=== PATIENT | male | born 1925 | race Caucasian/White ===

== ENCOUNTER → 2017-05-09 | Outpatient (CLI) | payer MEDICARE, BC ==
[~2017-05-09] MED LIST: AMIO200T PO; AMLO10TA2 PO; ASPI81TA21 PO; CARV12.5 PO; CRES10TA32 PO; DOXA1TAB40 PO; METF500T13 PO; VIMP50TA3 PO; XARE10TA PO
[2017-05-09 11:52] LABS: BASO % 0.5 % (0.0-1.0); EOS # 0.1 K/mm3 (0.0-0.50); LYMPH # 2.3 K/mm3 (1.5-4.5); LYMPH % 35.5 % (24.0-44.0); MEAN CORPUSCULAR HEMOGLOBIN 29.5 pg (27.0-33.0); MEAN CORPUSCULAR HGB CONC 32.6 g/dl (32.0-36.5); MEAN CORPUSCULAR VOLUME 90.6 fl (80.0-96.0); MONO # 0.4 K/mm3 (0.0-0.8); MONO % 6.2 % (0.0-5.0); NEUTROPHILS # 3.5 K/mm3 (1.8-7.7); NEUTROPHILS % 53.9 % (36.0-66.0); RED CELL DISTRIBUTION WIDTH 14.1 % (11.5-14.5); WHITE BLOOD COUNT 5.7 K/mm3 (4.0-10.0)
[2017-05-09 15:27] LABS: ALBUMIN 3.8 GM/DL (3.2-5.2); ALBUMIN/GLOBULIN RATIO 1.12 (1.00-1.93); ALKALINE PHOSPHATASE 44 U/L (45-117); ALT/SGPT 26 U/L (12-78); ANION GAP 10 MEQ/L (8-16); AST/SGOT 14 U/L (15-37); BILIRUBIN,TOTAL 0.3 MG/DL (0.2-1.0); BLOOD UREA NITROGEN 24 MG/DL (7-18); CALCIUM LEVEL 9.1 MG/DL (8.8-10.2); CARBON DIOXIDE LEVEL 25 MEQ/L (21-32); CHLORIDE LEVEL 107 MEQ/L (98-107); CREATININE FOR GFR 1.18 MG/DL (0.70-1.30); GLOMERULAR FILTRATION RATE > 60.0 (>35); GLUCOSE, FASTING 112 MG/DL (83-110); POTASSIUM SERUM 4.4 MEQ/L (3.5-5.1); SODIUM LEVEL 142 MEQ/L (136-145); TOTAL PROTEIN 7.2 GM/DL (6.4-8.2)
== END ==
LOC: M LAB 11:00
PROVIDERS: ATTEND Internal Medicine Cardiovascular Disease
DX: I48.4 Atypical atrial flutter (principal); I35.1 Nonrheumatic aortic (valve) insufficiency; I11.9 Hypertensive heart disease without heart failure

== ENCOUNTER 2017-05-15 13:00 | Day surgery (SDC) | payer MEDICARE, BC ==
[2017-05-15 13:26] VITALS: BP 138/74
[2017-05-15 13:43] VITALS: BP 138/74
[2017-05-15] MEDS ORDERED: LR 1,000 ML IV SCH ×2 (14:00→21:30)
[2017-05-15 16:00] VITALS: BP 152/66
[2017-05-15] MEDS ORDERED: MIDAZOLAM INJ 2 MG/2 ML VIAL (J2250) As Ordered ONE (18:41)
[2017-05-15] MEDS ORDERED: fentaNYL 100 MCG/2 ML INJECTION (J3010) As Ordered ONE (18:41)
[2017-05-15] MEDS ORDERED: ONDANSETRON 4MG/2ML VIAL (J2405) As Ordered ONE (18:41)
[2017-05-15] MEDS ORDERED: PROPOFOL 200 MG/20 ML VIAL As Ordered ONE (18:41)
[2017-05-15] MEDS ORDERED: LIDOCAINE 2% INJ 100 MG/5 ML SDV (FOR ANES.) As Ordered ONE (18:41)
[2017-05-15] MEDS ORDERED: LIDOCAINE 1% SDV INJ 30 ML VIAL As Ordered ONE (18:44)
[2017-05-15] MEDS ORDERED: CRES10TA32 PO (18:48)
[2017-05-15] MEDS ORDERED: CARV12.5 PO (18:48)
[2017-05-15] MEDS ORDERED: ASPI81TA21 PO (18:48)
[2017-05-15] MEDS ORDERED: METF500T13 PO (18:48)
[2017-05-15] MEDS ORDERED: VIMP50TA3 PO (18:48)
[2017-05-15] MEDS ORDERED: AMLO10TA2 PO (18:48)
[2017-05-15] MEDS ORDERED: XARE10TA PO (18:48)
[2017-05-15] MEDS ORDERED: DOXA1TAB40 PO (18:48)
[2017-05-15] MEDS ORDERED: ceFAZolin 1GM INJ (J0690) As Ordered ONE (19:36)
[2017-05-15] MEDS ORDERED: AMIODARONE HCL 150 MG/100 ML PREMIXED BAG (NEXTERONE) As Ordered ONE ×2 (20:28→20:42)
[2017-05-15] MEDS ORDERED: DOXAZOSIN MESYLATE 4 MG TAB PO SCH (21:00)
[2017-05-15] MEDS ORDERED: ONDANSETRON 4MG/2ML VIAL (J2405) IV PRN (21:30)
[2017-05-15 22:00] VITALS: BP 174/83
[2017-05-15] MEDS ORDERED: ACETAMINOPHEN TAB 650MG DOSE (2X325MG) PO PRN (22:00)
[2017-05-15 22:30] VITALS: BP 150/72
[2017-05-15] MEDS: CARVedilol 12.5 MG TAB PO SCH (22:36)
[2017-05-15] MEDS: LISINOPRIL 10 MG TAB PO SCH (22:37)
[2017-05-15] MEDS: AMIODARONE 200 MG TAB (PACERONE) PO SCH (22:37)
[2017-05-15 23:30] VITALS: BP 155/91
[2017-05-16 00:35] VITALS: BP 138/83
[2017-05-16 04:00] VITALS: BP 148/71
[2017-05-16] MEDS: ceFAZolin SOD 1 GM in D5W MINI-BAG PLUS 50 ML IV SCH ×2 (04:01→11:09)
--- NOTE | 2017-05-16 05:32 | RO ---
DATE OF PROCEDURE: 05/15/2017 PREOPERATIVE DIAGNOSIS: High-grade atrioventricular (AV) block with recurrent near syncope/atrial flutter. POSTOPERATIVE DIAGNOSIS: High-grade atrioventricular (AV) block with recurrent near syncope/atrial flutter. PROCEDURE: 1. Implantation of permanent dual-chamber pacemaker. 2. Attempted atrial overdrive pacing of atrial flutter. 3. Direct current cardioversion of atrial fibrillation. IMPLANTING SECURITIES SETTLEMENT PROCESSOR: Dr. Dickson Schneider DRUM LOADER AND UNLOADER: ANESTHESIOLOGIST: Dr. Pozo TYPE OF ANESTHESIA: Monitored local anesthesia. CLINICAL SUMMARY: This 89-year-old father of six grown children (one ), resident of [place] who daniels at [place], is well known to my cardiology practice having ischemic, hypertensive and valvular heart disease. 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 He had been suffering recurrent falls and had a subdural hematoma October 2014 and March 2015, status post craniotomy with post craniotomy seizures. Was seen in followup 04/27/2017 complaining of some absent spells but was making fair progress with his walker, had been able to climb up to four flights of stairs during the course of the day without chest pain. Ultimate limitation with dyspnea. Had been free of any palpitations. Despite his episodes of absence without lateralizing neurological symptom had been tolerating his medications. Office EKG showed new onset atrial flutter with somewhat slow ventricular response on carvedilol 12.5 mg twice a day. A 5-day patch Holter monitor was performed showing heart rate range 34-102 averaging 77 beats per minute (BPM) on his current carvedilol therapy. Unfortunately, he had occasional rates as low as 30s during wakeful hours and 509 asystolic pauses of at least 2 seconds, 37 greater than 3 seconds with the longest pause of 4.7 seconds. He had occasional isolated premature ventricular contractions (PVCs). In light of his significant bradyarrhythmia and controlled average ventricular response with atrial flutter on his carvedilol, we recommended permanent pacemaker implantation. At the same time, we would be tempted to try and convert his rhythm to a sinus mechanism. Pleasant, mildly overweight, tall, elderly gentleman laying comfortably. Heart rate 78 beats per minute and irregular, blood pressure 150/58 sitting, respiratory rate 16 per minute, body mass index (BMI) 27.5. No pallor or cyanosis. Significant proximal muscle weakness and some unsteadiness of gait using a walker. Trachea midline. Jugular veins 2 cm above the sternal angle. Normal-appearing chest configuration with well-healed sternotomy incisions. A few bibasilar inspiratory crepitations that clear with a deep breath. Slight prolongation of expiration but no audible wheeze. Apical impulse not palpable. S1 and S2 were variable. Has a crisp S2 closure that is prosthetic. Systolic ejection murmur that was variable in intensity because of his arrhythmia. Normal carotid upstrokes with variable volume related to his arrhythmia. No bruits. Pedal pulses were difficult to palpate through pitting edema 1 mm one-third up both lower legs. His abdomen is soft. panel monitor 04/27/2017 shows underlying atrial tachycardia versus slow atrial flutter with somewhat slow ventricular response averaging 53 BPM. Leftward axis with left bundle branch block configuration. Rhythm changed from our last tracing June 2016. Blood work was performed showing a normal CBC, sedimentation rate of 16. Two blood cultures were obtained. One showing a contaminant. Repeat blood cultures were obtained earlier today. Electrolytes were in balance with normal BUN and creatinine. Her glucose was slightly elevated. DESCRIPTION OF PROCEDURE: In the fasting state having signed informed consent and having received Ancef 2 grams IV premedication, the patient was taken to the operating theater. Numerous skin electrodes were applied to facilitate continuous electrocardiographic monitoring. Self-adhesive cardioverting/defibrillator pads were applied in an anteroposterior configuration and connected to a bedside cardioverter defibrillator. The left subclavian region was prepped and draped in usual fashion and the skin was infiltrated with 1% Xylocaine. The left axillary vein was catheterized using the micropuncture technique. A 5 cm linear incision was made several centimeters below and parallel to the left clavicle. Dissection was carried down to the level of the pectoralis fascia. The pocket was fashioned below the level of the incision line. Two bipolar screw-in active fixation steroid eluding pacing leads were then positioned to the high right atrial appendage and high right ventricular outflow track under fluoroscopic and electrocardiographic control. These sites were the final positions after the three separate locations in the right ventricle and at least six separate sites in the right atrium. The ventricular lead ([employer], model #[id number]/58, serial number [id number]) measurements were: Stimulation threshold 0.6 V/0.4 ms/impedance 623 ohms. The capital R wave amplitude measured 5.7 mV. At this point, with the ventricular lead in position, the patient was given amiodarone 150 mg IV infusion over 10 minutes for two doses by 20 minutes. We proceeded with attempted rapid atrial overdrive pacing once his pacing lead was positioned to the high right atrial appendage. A host of 20-second rapid atrial bursts were administered with atrial pacing output of 7.5 volts and 1.5 milliseconds. We initially found a cycle length of 340 milliseconds so we paced him with 300 milliseconds and 280 milliseconds and 260 milliseconds, 240 milliseconds without converting his underlying rhythm to a sinus mechanism. Finally the patient flipped atrial fibrillation. At this point, the patient was given additional sedation by anesthesia and once his awareness was blunted a single synchronized direct current shock of 200 joules was administered with successful conversion to a sinus rhythm. As described above, the second dose of amiodarone was administered because of frequent PACs. His atrial lead ([employer], model #[id number], serial number [id number]) measurements were: Stimulation threshold 0.8 P/0.4 ms/impedance 466 ohms. The P wave amplitude measured 1.2 mV. These leads were secured into position with sleeves sutured at their insertion site. They were then connected to a dual-chamber pulse generator ([employer] - [employer] - model #[id number], serial #[id number] - MRI compatible. Appropriate DDD pacing was documented. We have already activated the AF suppression mode to help us prevent recurrent atrial flutter. The patient will also be started on amiodarone 200 mg four times a day for the next 2 weeks. The pulse generator was placed and the pocket was secured in position with a suture through the upper right-hand corner of the epoxy header. The subcutaneous tissues were approximated using a running chromic suture and the skin was closed using livan. A dry dressing was applied. The patient was returned to the recovery room in good condition. Estimated blood loss approximately 10 mL. No apparent complications. Postoperative portable upright chest x-ray confirmed good lead position with no pneumothorax. His EKG in the recovery room showed consistent AV sequentially paced rhythm with rightward axis in keeping with right ventricle outflow tract stimulation. Our plan is to monitor him overnight on telemetry. He will receive an additional three doses of Ancef 1 gram IV every 8 hours. His medications will continue as before including carvedilol 12.5 mg twice a day, lisinopril 10 mg twice a day, amlodipine 10 mg daily, Crestor 10 mg nightly, doxazosin 4 mg nightly, aspirin 81 mg daily, metformin 500 mg twice a day and his Xarelto 10 mg daily will be started tomorrow afternoon. Amiodarone 2 mg four times a day will be administered for the next 2 weeks, dropping this to 2 mg three times a day for the next month in hopes of preserving a coordinated atrial mechanism. Following that we will reduce the dose to 200 mg daily. We anticipate he will be able to go home tomorrow, and he has an appointment in my office for staple removal and wound check in 7-10 days. FINAL DIAGNOSES: 1. High-grade atrioventricular block with recurrent near syncope - now with the dual-chamber pacemaker in situ. 2. Slow atrial flutter - now converted to an atrially paced rhythm. 3. Abnormal electrocardiogram/left bundle branch block. 4. Coronary disease ([place] vessel) post coronary artery bypass graft (CABG) times 2. 5. Hypertensive heart disease (benign without heart failure). 6. Aortic valve disorder (nonrheumatic) status post valve replacement. He will be resuming his customary no added salt, low fat, low cholesterol, diabetic diet. Activities will be as tolerated with light activities of his left arm until his livan are removed from my office. He has been encouraged to avoid getting his incision wet and to report any abnormal erythema, swelling or discharge. AMYLIN
[2017-05-16] MEDS ORDERED: metFORMIN (GLUCOPHAGE) 500 MG TAB PO SCH (08:00)
--- NOTE | 2017-05-16 08:18 | REP ---
Clinical: Pacemaker placement . Comparison: 08/06/2007 . Findings: The mediastinum and cardiac silhouette are stable and within normal limits for portable technique. Pacemaker identified. The lung mcdowell are clear without acute consolidation, effusion, or pneumothorax. Skeletal structures are intact. Impression: No acute cardiopulmonary process appreciated. Signed by Daniel Lorenzana MD 05/16/2017 08:10 A
[2017-05-16 08:32] VITALS: BP 149/80
[2017-05-16] MEDS ORDERED: ASPIRIN 81 MG CHEW TABLET PO SCH (09:00)
[2017-05-16] MEDS ORDERED: amLODIPine 10 MG TAB PO SCH (09:00)
[2017-05-16] MEDS: CARVedilol 12.5 MG TAB PO SCH (09:21)
[2017-05-16 09:22] VITALS: BP 149/80
[2017-05-16] MEDS: AMIODARONE 200 MG TAB (PACERONE) PO SCH (09:22)
[2017-05-16] MEDS: LISINOPRIL 10 MG TAB PO SCH (09:22)
--- NOTE | 2017-05-16 09:30 | REP ---
Clinical: Status post pacemaker . Comparison: 05/15/2017 . Technique: PA and lateral. Findings: The mediastinum and cardiac silhouette are normal. Pacemaker in stable position. The lung mcdowell are clear and without acute consolidation, effusion, or pneumothorax. The skeletal structures are intact and normal. Impression: 1. No acute cardiopulmonary process. Signed by Daniel Lorenzana MD 05/16/2017 09:22 A
--- NOTE | 2017-05-16 10:09 | ECGEPIP ---
Stationary ECG Study [facility] Test Date: 2017-05-15 Pat Name: CONSUELO SAUCEDO Department: Room: [place] [address] Gender: M Blaster Helper: : 1925 Requested By: Dickson Schneider Order Number: [id number] Reading MD: Pat Garg Measurements Intervals [place] Rate: 69 P: -65 WI: 208 QRS: 111 QRSD: 178 T: -68 QT: 500 QTc: 537 Interpretive Statements ELECTRONIC ATRIAL PACEMAKER ELECTRONIC VENTRICULAR PACEMAKER ABNORMAL RHYTHM ECG POSSIBLE INAPPROPRIATE SENSING BEATS 5 AND 8 NO PRIOR Electronically Signed On 05-16-2017 10:09:32 EDT by Pat Garg
--- NOTE | 2017-05-16 10:11 | ECGEPIP ---
Stationary ECG Study [facility] Test Date: 2017-05-16 Pat Name: CONSUELO SAUCEDO Department: Room: [place] [address] Gender: M Administrative Support Specialist: DANGELO : 1925 Requested By: Dickson Schneider Order Number: [id number] Reading MD: Pat Garg Measurements Intervals [place] Rate: 106 P: -62 SD: 170 QRS: 112 QRSD: 193 T: -61 QT: 428 QTc: 571 Interpretive Statements ELECTRONIC ATRIAL PACEMAKER ELECTRONIC VENTRICULAR PACEMAKER ABNORMAL RHYTHM ECG RATE FASTER APPROPRIATE SENSING C/W 05/15/173 Electronically Signed On 05-16-2017 10:10:45 EDT by Pat Garg
[2017-05-16] MEDS ORDERED: AMIO200T PO (12:20)
--- NOTE | 2017-05-16 13:35 | IPN ---
CARDIOLOGY PROGRESS NOTE DATE: 05/16/2017 SUBJECTIVE: Patient does note some incisional discomfort but has been free of other chest discomfort, shortness of breath, palpitations, or dizziness. Has been up in his room without problem. OBJECTIVE: Pleasant, somewhat tall, elderly male lying comfortably in bed. Heart rate 104 beats per minute and regular, blood pressure 149/80, respiratory rate 18, O2 saturation 97% on room air. Afebrile. No pallor or cyanosis. His pacer incision dressing was removed, and his incision inspected. There was no erythema. Minimal blood on the bandage but no abnormal swelling or discharge. AERIAL PHOTOGRAPH INTERPRETER: This shows mostly atrial and ventricular paced rhythm. Occasional sensed atrial activity that triggers his AF suppression mode with more rapid pacing temporarily. CHEST X-RAY: Study performed today was reviewed independently and shows cardiomegaly with sternotomy wire sutures. Evidence of his prior prosthetic aortic valve replacement with three small rings and stable pacing lead position anterior high right atrium and the septal portion of the right ventricular outflow tract. Pulse generator, left subclavian region. Slightly unfolded thoracic aorta with some calcification. Normal pulmonary vasculature and clear lung mcdowell with no pleural effusion. EKG: Study today shows again consistent atrial and ventricular pacing at 106 beats per minute (atrial fibrillation suppression mode) with occasional sensed atrial ectopic activity. Rightward axis with left bundle branch block pattern consistent with right ventricular outflow tract stimulation. No change from yesterday. IMPRESSION/PLAN: 1. Atrial flutter: This was converted yesterday in the operating room following his pacemaker implant. Currently continues on amiodarone antiarrhythmic therapy with his pacemaker programmed to AF suppression mode in hopes of preventing recurrent atrial tachyarrhythmia. 2. AV block/dual-chamber pacemaker in situ: His pacemaker is functioning appropriately. Has excellent intracardiac electrograms and pacing thresholds with ample battery voltage. His device is functioning appropriately with atrial fibrillation suppression mode activated, as mentioned above. Pacemaker reprogramming was performed today in order to save battery life and prolong generator longevity. No apparent complications with chest x-ray and EKG showing stable function and position. 3. Coronary artery disease ([place] vessel)/post bypass surgery: Has remained free of symptomatic myocardial ischemia. Serial EKGs here have shown no repolarization changes. Will remain on protective combination medical therapy. 4. Hypertensive heart disease (benign without heart failure): Given his current mild incisional discomfort, his blood pressure has remained controlled. No symptoms or signs of congestion. 5. Aortic valve disorder (nonrheumatic)/postaortic valve replacement (currently a bioprosthetic device): No symptoms or signs of endocarditis. DISCHARGE MEDICATIONS AND RECOMMENDATIONS: Patient will be going home today and has been requested to perform only light activities of daily living with his left arm and avoid getting his incision wet until his livan are removed in my office in 7-10 days. A prescription for amiodarone has been sent to his pharmacy with the following Instructions: 200 mg tablets one tablet four times a day until May 29 then one tablet three times a day until June 12, then one tablet twice a day until July 13 then one tablet daily. Other medications will continue; carvedilol 12.5 mg twice a day, lisinopril 10 mg twice a day, amlodipine 10 mg daily, aspirin 81 mg daily, Xarelto 10 mg daily to resume tomorrow morning, Crestor 10 mg nightly, doxazosin 4 mg nightly, Vimpat 50 mg by mouth twice a day, and metformin 500 mg twice a day. He has been encouraged to contact our office promptly for any abnormal swelling, erythema, or discharge.
[2017-05-16] MEDS ORDERED: RIVAROXABAN 10 MG TAB (XARELTO) PO SCH (18:00)
== END 2017-05-16 13:26 | disposition home or self-care (01) ==
LOC: M OROP 13:00 → M OPCLIPCU 13:00 → M PCU 13:09 → M OPCLIPCU 05-16 13:26
PROVIDERS: ATTEND Internal Medicine Cardiovascular Disease
DX: I44.2 Atrioventricular block, complete (principal); I48.4 Atypical atrial flutter; R94.31 Abnormal electrocardiogram [ECG] [EKG]; I25.10 Atherosclerotic heart disease of native coronary artery without angina pectoris; I35.1 Nonrheumatic aortic (valve) insufficiency; R55 Syncope and collapse; R42 Dizziness and giddiness; I11.9 Hypertensive heart disease without heart failure; Z95.3 Presence of xenogenic heart valve; E78.00 Pure hypercholesterolemia, unspecified; Z87.820 Personal history of traumatic brain injury; Z79.82 Long term (current) use of aspirin; Z79.899 Other long term (current) drug therapy; Z79.84 Long term (current) use of oral hypoglycemic drugs; R29.6 Repeated falls; R56.1 Post traumatic seizures; Z79.01 Long term (current) use of anticoagulants; E78.5 Hyperlipidemia, unspecified
CPT/HCPCS: 33208; 36415; 71010; 71020; 76000; 87040; 92961; 93005; C1785; C1898; J0690; J2250; J2405; J3010